=== PATIENT | male | born 1950 | race Caucasian/White ===

== ENCOUNTER → 2017-02-06 | Outpatient (CLI) | payer MEDICARE, OTHER | END | disposition home or self-care (01) | LOC: GMAB 10:15 | PROVIDERS: ATTEND Family Medicine | DX: Z12.5 Encounter for screening for malignant neoplasm of prostate (principal); R53.82 Chronic fatigue, unspecified; E29.9 Testicular dysfunction, unspecified | CPT/HCPCS: 84403; 84443; G0103 ==

== ENCOUNTER 2017-05-19 08:23 | Emergency (ER) | payer MEDICARE, OTHER ==
[2017-05-19 08:49] VITALS: BP 126/76; TEMP 97.3; O2SAT 96
--- NOTE | 2017-05-19 08:49 | ED.PDOC ---
History of Present Illness - General Chief Complaint: General Stated Complaint: Fever, headache, cough, congestion RLQ Pain Time Seen by Provider: 05/19/17 08:33 Source: patient Exam Limitations: no limitations - History of Present Illness Initial Comments: the patient is a 66-year-old male presenting to the emergency room secondary to 10 days of symptoms of a respiratory tract infection including what is probably a COPD exacerbation. He was seen by his primary care doctor last week and diagnosed with a viral respiratory tract infection. His respiratory symptoms have progressed. He is not currently smoking since he has been sick. No definite fevers. The cough has been significant and over the last 3 days the patient has developed some right inguinal pain with fullness present. No bowel obstruction. No vomiting. No blood in the stool. Timing/Duration: unsure Severity: moderate Improving Factors: nothing Worsening Factors: movement Associated Symptoms: cough Allergies/Adverse Reactions: Allergies NO KNOWN ALLERGY Allergy (Verified 05/19/17 08:40) Home Medications: Ambulatory Orders Albuterol Inhaler [Ventolin Hfa Inhaler] 2 puff INH Q4H PRN #1 inh 05/19/17 Amoxicillin & Pot Clavulanate [Augmentin Tab] 875 mg PO BID #14 tab 05/19/17 predniSONE [Prednisone] 20 mg PO DAILY #5 tab 05/19/17 Review of Systems - Review of Systems Constitutional: States: malaise EENTM: States: nose congestion, throat pain Respiratory: States: cough, short of breath - very mild, wheezing Cardiology: States: no symptoms reported Gastrointestinal/Abdominal: States: see HPI Genitourinary: States: no symptoms reported Musculoskeletal: States: no symptoms reported Skin: States: no symptoms reported Neurological: States: no symptoms reported Endocrine: States: no symptoms reported All other Systems: No Change from Baseline Past Medical History (General) - Patient Medical History Hx Congestive Heart Failure: No Hx Diabetes: No Hx MRSA: No Physical Exam - Physical Exam General Appearance: Alert, No apparent distress Eye Exam: bilateral normal Ears, Nose, Throat: hearing grossly normal, nasal congestion Neck: non-tender, full range of motion Respiratory: chest non-tender, no respiratory distress, no accessory muscle use , rhonchi, wheezing Cardiovascular/Chest: normal peripheral pulses, regular rate, rhythm, no edema Peripheral Pulses: radial,right: 2+, radial,left: 2+, dorsalis pedis,right: 2+, dorsalis pedis,left: 2+ Gastrointestinal/Abdominal: soft, other - no rebound or peritoneal signs. The patient does have a reducible right inguinal hernia that is palpable on exam. Rectal Exam: deferred Back Exam: normal inspection, no CVA tenderness Extremity: normal range of motion, non-tender, normal inspection, normal capillary refill Neurologic: electrocardiographic technician II-XII nml as tested, alert, normal mood/affect, oriented x 3 Skin Exam: normal color Progress - Progress Progress: 05/19/17 08:49 the patient is a 66-year-old male presenting with a COPD exacerbation that is mild to moderate in nature and what is probably a worsening right inguinal hernia that is reducible without current obstruction. The patient needs to set up an appointment with his general surgeon within the next week for a scheduled repair of a right inguinal hernia. For the COPD exacerbation he needs to abstain from smoking. He will additionally be placed on prednisone 20 mg daily for the next 5 days. He'll also be placed on Augmentin 875 mg twice daily for the next 7 days. He will also be written for an albuterol inhaler to be used 2 puffs every 4 hours for at least the next 3 days. ER warnings were given. He needs to follow up with his primary care doctor early next week. Departure - Departure Clinical Impression: COPD exacerbation Inguinal hernia Qualifiers: Obstruction and gangrene presence: without obstruction or gangrene Laterality: unilateral Recurrence: non-recurrent Qualified Code(s): K40.90 - Unilateral inguinal hernia, without obstruction or gangrene, not specified as recurrent Disposition: Discharge to Home or Self Care Condition: Fair Departure Forms: ED Discharge - Pt. Copy, Patient Portal Self Enrollment Instructions: Groin Hernia -- Adult, DI for Chronic Obstructive Pulmonary Disease Diet: regular diet Activity: increase activity as tolerated Referrals: Marcelino Gale MD [Primary Care Provider] - 1-5 Days Prescriptions: Albuterol Inhaler [Ventolin Hfa Inhaler] 2 puff INH Q4H PRN #1 inh PRN Reason: Shortness Of Breath Amoxicillin & Pot Clavulanate [Augmentin Tab] 875 mg PO BID #14 tab predniSONE [Prednisone] 20 mg PO DAILY #5 tab Home Medications: Ambulatory Orders Albuterol Inhaler [Ventolin Hfa Inhaler] 2 puff INH Q4H PRN #1 inh 09/15/17 Amoxicillin & Pot Clavulanate [Augmentin Tab] 875 mg PO BID #14 tab 05/19/17 predniSONE [Prednisone] 20 mg PO DAILY #5 tab 05/19/17 Additional Instructions: the patient is a 66-year-old male presenting with a COPD exacerbation that is mild to moderate in nature and what is probably a worsening right inguinal hernia that is reducible without current obstruction. The patient needs to set up an appointment with his general surgeon within the next week for a scheduled repair of a right inguinal hernia. For the COPD exacerbation he needs to abstain from smoking. He will additionally be placed on prednisone 20 mg daily for the next 5 days. He'll also be placed on Augmentin 875 mg twice daily for the next 7 days. He will also be written for an albuterol inhaler to be used 2 puffs every 4 hours for at least the next 3 days. ER warnings were given. He needs to follow up with his primary care doctor early next week.
== END 2017-05-19 09:15 | disposition home or self-care (01) ==
LOC: ER 08:23
DX: J44.1 Chronic obstructive pulmonary disease with (acute) exacerbation (principal); K40.90 Unilateral inguinal hernia, without obstruction or gangrene, not specified as recurrent

== ENCOUNTER → 2017-05-22 | Outpatient (CLI) | payer MEDICARE, OTHER ==
--- NOTE | 2017-05-24 10:41 | CT ---
EXAM DESCRIPTION: Chest w/o Contrast CLINICAL HISTORY: 66 years,Male,COUGH COMPARISON: None TECHNIQUE: Multiple axial helical tomographic images were obtained of the chest with out IV contrast, then reconstructed in the sagittal and coronal plane. This exam was performed using radiation doses that are As Low As Reasonably Achievable (ALARA). FINDINGS: Lung ingram are clear. No consolidations or effusions or nodules. No pneumothoraces. There is mild centrilobular emphysematous images changes. Mediastinum demonstrates no adenopathy or masses. Heart size and pulmonary vascularity are unremarkable. Upper abdominal organs included in the exam demonstrate a new dense lesion exophytic superior pole right kidney measuring 38 Hounsfield units an approximately 8 mm in size. Not seen and CT of the abdomen from February 20, 2012. There is large cyst in the superior pole right kidney measuring over 5 cm in today's study. Prior CT of the abdomen was 3.8 cm Soft tissues and bony elements are unremarkable. IMPRESSION: New subcentimeter exophytic dense mass seen superior pole right kidney. This may be visible by ultrasound to see if its cystic versus solid else MRI of the kidneys with and without gadolinium contrast is usually more sensitive and specific. And there is an enlarging simple cyst superior pole right kidney. Lung ingram are unremarkable except for mild emphysematous changes. Electronically signed by: Wong Campbell MD 05/24/2017 10:39 AM CDT
== END ==
LOC: CT 15:03
PROVIDERS: ATTEND Family Medicine
DX: R05 Cough (principal)

== ENCOUNTER → 2017-06-01 | Day surgery (SDC) | payer MEDICARE, OTHER ==
[~2017-06-01] MED LIST: BUPIVACAINE 0.25% W/EPI 50 ML VIAL INJ ONE; LACTATED RINGERS 1,000 ML BAG IV ONE; LACTATED RINGERS 1,000 ML BAG IVS ONE; LACTATED RINGERS 1,000 ML ONE; LIDOCAINE 1% 10 ML VIAL INJ ONE; LIDOCAINE 2 % GEL 5 ML TUBE TOP ONE; PROPOFOL 200 MG/20 ML VIAL IV ONE; SODIUM CHL 0.9% 100ML MINI-BAG 100 ML IVPB ONE; ceFAZolin SODIUM 1 GM VIAL ONE; fentaNYL CITRATE INJ 50 MCG/ML AMP ONE
[2017-06-01 12:12] VITALS: BP 124/80; TEMP 98; O2SAT 97
== END | disposition home or self-care (01) ==
LOC: AMB 08:00
PROVIDERS: ATTEND Surgery
DX: K40.90 Unilateral inguinal hernia, without obstruction or gangrene, not specified as recurrent (principal); E78.5 Hyperlipidemia, unspecified; I25.10 Atherosclerotic heart disease of native coronary artery without angina pectoris; J45.909 Unspecified asthma, uncomplicated; K52.9 Noninfective gastroenteritis and colitis, unspecified; Z88.8 Allergy status to other drugs, medicaments and biological substances; Z87.891 Personal history of nicotine dependence; I25.2 Old myocardial infarction; Z53.9 Procedure and treatment not carried out, unspecified reason; Z79.899 Other long term (current) drug therapy
CPT/HCPCS: 36415; 80053; 81001; J0690; J3490; J7050; J7120

== ENCOUNTER → 2017-06-02 | Outpatient (CLI) | payer MEDICARE, OTHER | END | disposition home or self-care (01) | LOC: GMAB 10:06 | PROVIDERS: ATTEND Family Medicine | DX: R79.9 Abnormal finding of blood chemistry, unspecified (principal) ==

== ENCOUNTER → 2017-06-08 | Day surgery (SDC) | payer MEDICARE, OTHER ==
[~2017-06-08] MED LIST changes: +ACETAMINOPHEN IV 1000MG 100 ML ONE; +DEXAMETHASONE INJ 10 MG/ML VIAL ONE; +HYDROcodone 5MG/APAP 325MG 1 EA TAB ONE; +HYDROmorphone HCL INJ 2 MG/ML VIAL ONE; +KETOROLAC TROMETHAMINE INJ 30 MG/ML VIAL ONE; -LACTATED RINGERS 1,000 ML BAG IV ONE; -LACTATED RINGERS 1,000 ML BAG IVS ONE; -LIDOCAINE 2 % GEL 5 ML TUBE TOP ONE; +MIDAZOLAM INJ 2 MG/2 ML VIAL ONE; +raNITIdine HCL INJ 25 MG/ML VIAL ONE
[2017-06-08 12:33] VITALS: TEMP 97.6; O2SAT 97
--- NOTE | 2017-06-08 13:13 | OP ---
DATE OF PROCEDURE: 06/08/17 PREOPERATIVE DIAGNOSIS: 1. Right inguinal hernia. POSTOPERATIVE DIAGNOSIS: 1. Right inguinal hernia. PROCEDURE: 1. Repair of right inguinal hernia with Surgimesh graft. SURGEON: Mario Cook MD. HOUSEKEEPING ASSOCIATE: None. ANESTHESIA: General laryngeal mask anesthesia and local infiltration of 0.25% Marcaine with epinephrine. INDICATION: The patient is a 66-year-old male who had developed a mass in his right groin. It has enlarged and become more uncomfortable. He was brought to the Surgical Suite today for hernia repair after the risks, benefits and alternatives to the procedure were discussed and accepted. FINDINGS: There was a generalized weakness in the floor of the canal and indirect hernia with no sliding component in the inguinal canal. There was a lipoma of the cord and also noted into the procedure is the external oblique fascia was torn in two places where the Gelpi retractor was. No other pathology was identified. PROCEDURE: After adequate general anesthesia was obtained, the patient was prepped and draped in the usual sterile manner. At this point, a surgical time- out was taken. An oblique incision was fashioned in the right groin, extending from his appendix incision down to near the pubic tubercle. It was first marked with a pen, then infiltration of anesthesia. The skin was incised with a knife and dissection was carried down through the skin and subcutaneous tissue to the external oblique fascia using electrocautery and blunt dissection. The self-retaining retractor was placed. The external oblique fascia was then opened in the direction of the fibers through the external ring. The external oblique fascia was dissected free from the floor of the canal and from the cord. The cord was then dissected free from the floor of the canal using blunt dissection. A half inch Madai drain was placed around it for traction. The cord was then explored and the indirect hernia sac identified. Prior to this, the nerve was dissected free from the cord and retracted inferiorly. The indirect hernia sac was dissected free down to the floor of the canal and reduced below the floor of the canal. At this point, a Surgimesh patch was introduced under the floor of the canal and sutured circumferentially with interrupted 2-0 Vicryl sutures. When this was done, the wound was irrigated with saline. Hemostasis was noted to be adequate. At this point, the Surgimesh patch was sutured around the cord in the usual manner with interrupted 2-0 Vicryl sutures. When this was done, again, the wound was irrigated with saline. The cord and nerve were then placed back in position in the canal. The external oblique fascia was then closed with running 3-0 Vicryl suture. The two rents in the external oblique fascia were closed with interrupted [id number] sutures of 3-0 Vicryl. When this was done, the cord and subcutaneous tissue above, below and lateral to the incision were infiltrated with local anesthesia. The Yael's fascia was reapproximated with interrupted 3-0 Chromic suture. Skin edges were approximated with skin stapler. The testicle was checked for position in the scrotum. Sterile pressure dressing was applied. The patient was awakened and taken to the Recovery Room in good and stable condition. Estimated blood loss was approximately 100 mL. All sponge, needle and instrument counts were correct. #[id number]
[2017-06-08 13:49] VITALS: BP 128/70
== END | disposition home or self-care (01) ==
LOC: AMB 08:00
PROVIDERS: ATTEND Surgery
DX: K40.90 Unilateral inguinal hernia, without obstruction or gangrene, not specified as recurrent (principal); I25.10 Atherosclerotic heart disease of native coronary artery without angina pectoris; K21.9 Gastro-esophageal reflux disease without esophagitis; J44.9 Chronic obstructive pulmonary disease, unspecified; N40.0 Benign prostatic hyperplasia without lower urinary tract symptoms; E78.5 Hyperlipidemia, unspecified; M19.90 Unspecified osteoarthritis, unspecified site; K52.89 Other specified noninfective gastroenteritis and colitis; Z87.891 Personal history of nicotine dependence; I25.2 Old myocardial infarction; Z88.8 Allergy status to other drugs, medicaments and biological substances; Z79.899 Other long term (current) drug therapy
CPT/HCPCS: 00830; 49505; C1781; J0690; J1100; J1170; J1885; J2250; J2780; J3010; J3490; J7050; J7120

== ENCOUNTER → 2017-10-11 | Outpatient (CLI) | payer MEDICARE, OTHER | LOC: LAB.O 14:37 | PROVIDERS: ATTEND Urology | DX: R97.20 Elevated prostate specific antigen [PSA] (principal) ==

== ENCOUNTER → 2017-10-16 | Outpatient (CLI) | payer MEDICARE, OTHER ==
--- NOTE | 2017-10-16 15:33 | US ---
EXAM DESCRIPTION: Renal: Ultrasound. 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 TECHNIQUE: Transcutaneous scanning: Two-dimensional and Doppler modes. Technically difficult study due to patient body habitus. FINDINGS: Right kidney measures 10.8 x 6.0 x 5.5 cm; mid-renal cortical thickness 15 mm. . 5.5 cm cyst in the upper pole of the right kidney. 1.5 x 1.3 cm cyst in the mid right kidney. Echogenicity equal to the liver. No hydronephrosis No calcifications. Smooth contour of the kidney with no perinephric fluid. Normal vascularity. Proximal ureter not visualized. Left kidney measures 11.1 x 5.7 x 5.0 cm; mid-renal cortical thickness 14.2 mm. Normal echogenicity. No hydronephrosis. No calcifications. Smooth contour of the kidney with no perinephric fluid. Normal vascularity.. Proximal ureter not visualized. Urinary bladder not visualized. Abdominal aorta diameter not measured(cm): Mid 1.8 cm . IMPRESSION: 1. Increased echogenicity of the cortex of the right kidney but no cortical thinning. 5.5 cm cyst and 1.5 cm cyst. No hydronephrosis. No definite stones. No right renal mass. 2. Normal size left kidney and normal cortical echogenicity and thickness. No hydronephrosis. No definite stones. No left renal mass. Electronically signed by: Reid Charlton MD 10/16/2017 3:32 PM [facility]
== END ==
LOC: US 08:30
PROVIDERS: ATTEND Urology
DX: D41.00 Neoplasm of uncertain behavior of unspecified kidney (principal)

== ENCOUNTER → 2017-11-27 | Outpatient (CLI) | payer MEDICARE, OTHER ==
--- NOTE | 2017-11-27 20:06 | MRI ---
EXAM DESCRIPTION: Brain w/o Contrast: MRI. CLINICAL HISTORY: HEADACHES COMPARISON: None. TECHNIQUE: Multiplanar, high-field MRI unit, multiple diffusion sequences, multiple conventional sequences without contrast. FINDINGS: Multiple small bilateral foci of bright FLAIR and T2-weighted signal in the periventricular white matter and rain-white matter junctions of the cerebral hemispheres. This is predominantly at the level of the lateral ventricular bodies and more superiorly. No hemorrhage cerebral edema or mass effect . Similar signal in the right basal ganglia. No hemorrhage, no cerebral edema, no mass-effect. Normal signal in the brainstem and cerebellar hemispheres. No hemorrhage, no cerebral edema, no mass-effect. Concordance of the diffusion and non-diffusion sequences with no diffusion restriction. Cortical sulci, ventricles, and other CSF spaces, and the subdural spaces are normally configured for patients age.. No effacement or displacement. No midline shift. No extra-axial hemorrhage. Normal flow signal void in the major vessels of the [place], and the venous sinuses. IACs are symmetric bilaterally. Normal signal in the bilateral mastoid air cells. No mass effect in the bilateral cerebellopontine angles. Pituitary gland occupies all of the sella. Base of the cerebellar tonsils is at level of the foramen magnum. Mucoperiosteal thickening involving most of the particularly the ethmoid air cells in the paranasal sinuses. Posterior right septal deviation. The bony calvarium is intact. IMPRESSION: 1. Multiple bilateral small white matter lesions in the periventricular regions at the level of the ventricles and above the ventricles. Few lesions In the subcortical rain matter and right basal ganglia. Brainstem and cerebellar hemispheres are unremarkable. This is most likely related to mild cerebral microvascular disease and aging. Less likely would be migraine headaches, demyelination process, vasculitis, or inflammatory process. 2. Normal noncontrast MRI diffusion scan with no evidence of acute or subacute infarction. 3. Minor abnormalities of the paranasal sinuses and nasal passageways. Electronically signed by: Reid Charlton MD 11/27/2017 8:04 PM CDT
== END ==
LOC: MRI 14:02
PROVIDERS: ATTEND Family Medicine
DX: G44.209 Tension-type headache, unspecified, not intractable (principal)

== ENCOUNTER → 2018-07-23 | Outpatient (CLI) | payer MEDICARE, OTHER ==
--- NOTE | 2018-07-23 13:40 | US ---
US THYROID CLINICAL STATEMENT: E04.1.. No palpable mass. No history of previous thyroid surgery or therapy COMPARISON: None FINDINGS: Size right thyroid lobe: 4.4 x 1.7 x 1.5 cm Size left thyroid lobe: 3.3 x 1.4 x 1.4 cm Size isthmus: 0.3 cm Estimated total number of nodules greater than or equal to 1 cm: 1. No dominant cyst. No parenchymal edema or large calcifications. No overlying skin changes. No abnormal vascularity. Nodule 1: Size: 1.3 x 1.3 x 1.0 cm Location: Right Lower Composition: solid or almost completely solid: 2 points Echogenicity: hypoechoic: 2 points Shape: wider than tall: 0 points Margins: smooth: 0 points. Rim more hypoechoic than central nodule. Echogenic foci: none: 0 points ACR Total Points: 4; ACR TI-RADS risk category: TR4 - moderately suspicious nodule. No dominant solid mass or cyst in the adjacent soft tissues. No parenchymal edema or large calcifications. No overlying skin changes. Normal vascularity. IMPRESSION: 1. Nodule 1: ACR TI-RADS 2017 Category TR4. Recommend: Follow-up ultrasound in 1 year. [facility] Best Practice recommendations based upon ACR TI-RADS 2017 recommendations. Please see below.* 2. Soft tissue around the thyroid gland is unremarkable. *ACR TI-RADS 2017 Recommendations: TR1: No FNA or follow up TR2: No FNA or follow up TR3: FNA if >/= 2.5 cm, follow up if 1.5 - 2.4 cm in 1, 3, and 5 years TR4: FNA if >/= 1.5 cm, follow up if 1.0 - 1.4 cm in 1, 2, 3, and 5 years TR5: FNA if >/= 1.0 cm, follow up if 0.5 - 0.9 cm every year for 5 years ACR TI-RADS recommends that no more than two nodules with the highest ACR TI-RADS total point should be biopsied and no more than four nodules should be followed. Electronically signed by: Reid Charlton MD 07/23/2018 1:39 PM DEPUTY INSURANCE COMMISSIONER
== END ==
LOC: US 08:30
PROVIDERS: ATTEND Family Medicine
DX: E04.1 Nontoxic single thyroid nodule (principal)

== ENCOUNTER → 2018-07-30 | Outpatient (CLI) | payer MEDICARE, OTHER ==
--- NOTE | 2018-07-30 09:06 | RAD ---
EXAM DESCRIPTION: Shoulder,Left 2 or More Views CLINICAL HISTORY: 67 years Male, PAIN IN LEFT SHOULDER COMPARISON: None available. FINDINGS: The visualized bones are well-mineralized.No acute fracture or dislocation. The soft tissues appear grossly unremarkable. Moderate to severe osteoarthritis. 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 Electronically signed by: Marco Stephens MD 07/30/2018 9:05 AM [facility]
== END ==
LOC: RAD 08:13
PROVIDERS: ATTEND Orthopaedic Surgery
DX: M25.512 Pain in left shoulder (principal); M19.012 Primary osteoarthritis, left shoulder

== ENCOUNTER → 2018-08-06 | Outpatient (CLI) | payer MEDICARE, OTHER ==
[~2018-08-06] MED LIST changes: -ACETAMINOPHEN IV 1000MG 100 ML ONE; +ALBUTEROL SULFATE 2.5 MG/3 ML VIAL NEB ONE; -BUPIVACAINE 0.25% W/EPI 50 ML VIAL INJ ONE; -DEXAMETHASONE INJ 10 MG/ML VIAL ONE; -HYDROcodone 5MG/APAP 325MG 1 EA TAB ONE; -HYDROmorphone HCL INJ 2 MG/ML VIAL ONE; -KETOROLAC TROMETHAMINE INJ 30 MG/ML VIAL ONE; -LACTATED RINGERS 1,000 ML ONE; -LIDOCAINE 1% 10 ML VIAL INJ ONE; -MIDAZOLAM INJ 2 MG/2 ML VIAL ONE; -PROPOFOL 200 MG/20 ML VIAL IV ONE; -SODIUM CHL 0.9% 100ML MINI-BAG 100 ML IVPB ONE; -ceFAZolin SODIUM 1 GM VIAL ONE; -fentaNYL CITRATE INJ 50 MCG/ML AMP ONE; -raNITIdine HCL INJ 25 MG/ML VIAL ONE
== END ==
LOC: RESP 09:56
PROVIDERS: ATTEND Family Medicine
DX: J44.9 Chronic obstructive pulmonary disease, unspecified (principal)
CPT/HCPCS: 94060; J7611

== ENCOUNTER → 2018-08-20 | Outpatient (CLI) | payer MEDICARE, OTHER ==
--- NOTE | 2018-08-20 15:38 | CT ---
Procedure: CT LUNG SCREENING Exam Date: 03/20/2018. Ordering Provider: Pablo Parry Clinical Indication: HX OF TOBACCO USE. 20 pack years. Stop smoking one year ago. This patient meets eligibility criteria for low-dose CT lung cancer screening. Comparison: CT scan the chest without contrast 05/14/2017. Thyroid ultrasound 07/23/2018. CT scan of the abdomen 02/20/2012. Technique: Using a multislice scanner, sequential helical axial imaging was obtained in the thorax, 2.5 mm thickness, 2.5 mm separation, from the level of the thoracic inlet through the lung bases without IV contrast. A low dose protocol was utilized: CTDI: 1.76 mGy. 120. kVp. 45 mA. DLP: 67.64 mGy-centimeters. 2D sagittal and coronal reconstructed images, 6.0 mm thickness, were obtained. This exam was performed according to our departmental dose optimization program which includes use of automated exposure control, adjustment of the mA and/or kV according to patient size and/or use of iterative reconstruction technique. Nodule measurements under 10 mm are given as mean value of 3 axes diameters. FINDINGS: Lungs and large airways: Multiple tree-in-bud densities with small subpleural groundglass densities are visualized in the right lower lobe more than the left. There is also trace amount of peribronchial wall thickening bilaterally. Minimal pleural parenchymal scarring in the inferior middle lobe and inferior lingula. 4 mm solid nodule in the lateral subpleural right middle lobe on axial image 88 is stable. 4 mm solid subpleural nodule in the superior segment of the left lower lobe laterally on image 73 is stable. Pleura: Scattered bilateral foci of thickening. No effusion or pneumothorax bilaterally. Mediastinum and kenny: evaluation limited by low dose technique and lack of IV contrast. Small lymph nodes. Heart and great vessels: Coronary artery calcifications. Chest wall, lower neck, axillae: Evaluation also limited by same factors as described above. Subcutaneous adipose nodules in the upper and mid back to the right of midline. 1.0-1.5 cm low-density nodule in the right lobe of the thyroid gland. Was seen on prior thyroid ultrasound. Please see below. Bilateral small axillary lymph nodes. Upper abdomen: Approximately 5 cm partially visualized cystic structure most likely originating from the right kidney but cannot exclude origination from the right adrenal gland. (Prior CT scan in February 2012 shows this to be a renal cyst.) Normal density and size of the left adrenal gland and spleen with splenic calcifications. No free air or fluid in the included peritoneal space. Osseous structures: Evaluation limited by low dose MIP technique. Spondylosis in the included thoracic spine. Bilateral sternoclavicular arthrosis. No lytic or blastic lesions. IMPRESSION: 1. "Tree-in-bud" densities in the right lower lobe have increased in the region involved in number since the prior study. Also smaller similar densities in the left lung. This can be associated with chronic processes such as mycobacterial, viral, or fungal infection, bronchiectasis, or aspiration mass, bronchiolitis or sarcoidosis. Small solid nodules are stable, taking into account difference in technique since prior chest CT scan. No abnormal nodules. No pleural effusion or pneumothorax. No abnormal soft tissue masses. Right thyroid nodule again seen. See recommendations on prior thyroid ultrasound scan. Low-dose chest CT recommendations based upon [facility] Best Practice guidelines. Please see below for Lung RADS category and FOLLOW-UP.* *Lung RADS category CATEGORY 2- Nodules with a very low likelihood (less than 1%) of becoming a clinically active cancer due to size or lack of growth. Nodules: Solid or part solid nodule(s) less than 6mm, new solid nodule less than 4mm. Ground glass nodule(s) less than 20mm or unchanged or slow growing ground glass nodule 20mm or greater. Cat 3 or 4 nodule unchanged for 3 or more months. FOLLOW-UP: Continue annual screening with a Low Dose Chest CT in 12 months for re-evaluation. Electronically signed by: Reid Charlton MD 08/20/2018 3:37 PM GRAPHICS SPECIALIST
== END ==
LOC: CT 11:00
PROVIDERS: ATTEND Family Medicine
DX: Z87.891 Personal history of nicotine dependence (principal); R91.1 Solitary pulmonary nodule

== ENCOUNTER → 2019-03-20 | Outpatient (CLI) | payer MEDICARE, OTHER | LOC: LAB.O 14:48 | PROVIDERS: ATTEND Urology | DX: R97.20 Elevated prostate specific antigen [PSA] (principal) ==

== ENCOUNTER → 2019-06-10 | Outpatient (CLI) | payer MEDICARE, OTHER ==
--- NOTE | 2019-06-11 08:29 | CT ---
EXAM DESCRIPTION: Chest w/o Contrast CLINICAL HISTORY: RESTRICTIVE LUNG DISEASE COMPARISON: August 20, 2018 TECHNIQUE: Chest CT was performed without IV contrast. This exam was performed according to our departmental dose-optimization program, which includes automated exposure control, adjustment of the mA and/or kV according to patient size and/or use of iterative reconstruction technique. FINDINGS: 11 mm low-density nodule in the right thyroid lobe, stable from August 20, 2018. No thoracic aortic aneurysm. No esophageal wall thickening. No pleural or pericardial effusion. Limited sensitivity for detection of adenopathy due to lack of contrast, but no mediastinal or hilar adenopathy is seen. The main pulmonary artery is not dilated. The central airways are clear. Mild subsegmental atelectasis or scarring in the posterior medial right lung base with mild bronchiectasis at the same location, new or worse from August,. No additional airspace consolidation or lung mass. 6.2 cm cyst superior pole right kidney. Partially visualized colonic diverticulosis without diverticulitis. Tiny calcified splenic granulomata. The gallbladder is surgically absent. Mild degenerative changes in the thoracic spine multiple levels. IMPRESSION: Mild subsegmental atelectasis or scarring in the posterior right lung base with mild bronchiectasis at the same location. No airspace consolidation, pleural effusion or additional intrathoracic abnormality. Colonic diverticulosis and other nonacute findings as detailed above. Electronically signed by: Jorge Perez MD 06/11/2019 8:27 AM CDT
== END ==
LOC: CT 15:00
PROVIDERS: ATTEND Internal Medicine
DX: J98.4 Other disorders of lung (principal); R06.09 Other forms of dyspnea; J98.11 Atelectasis; K57.30 Diverticulosis of large intestine without perforation or abscess without bleeding

== ENCOUNTER → 2019-07-22 | Outpatient (CLI) | payer MEDICARE, OTHER ==
--- NOTE | 2019-07-22 09:36 | RAD ---
EXAM DESCRIPTION: Shoulder,Left 2 or More Views CLINICAL HISTORY: 68 years Male, PAIN IN LEFT SHOULDER COMPARISON: 07/30/2018 FINDINGS: The visualized bones are well-mineralized.No acute fracture or dislocation. The soft tissues appear grossly unremarkable. Severe osteoarthritis of the glenohumeral joint. Oral fracture of the midshaft of the left clavicle. IMPRESSION: Severe left glenohumeral joint osteoarthritis. Electronically signed by: Yocasta Del Rio MD 07/22/2019 9:34 AM [facility]
== END | disposition home or self-care (01) ==
LOC: RAD 08:40
PROVIDERS: ATTEND Orthopaedic Surgery
DX: M25.512 Pain in left shoulder (principal)

== ENCOUNTER → 2019-07-29 | Outpatient (CLI) | payer MEDICARE, OTHER ==
--- NOTE | 2019-07-30 09:34 | MRI ---
EXAM DESCRIPTION: Shoulder,Left CLINICAL HISTORY: 68 years, Male, PRIMARY OSTEOARTHRITIS OF THE SHOULDER REGION LEFT COMPARISON: Shoulder radiograph 07/22/2019. TECHNIQUE: MRI of the left shoulder was performed with multiplanar multi sequence imaging without intravenous contrast. FINDINGS: Rotator tendons: Mild supraspinatus, infraspinatus, and subscapularis tendinosis. There is mild partial-thickness predominantly bursal surface tearing at the supraspinatus myotendinous junction posterior half (up to 30% thickness). Minimal partial-thickness articular surface tear of the infraspinatus insertional fibers. The subscapularis and teres minor tendons are intact. No full-thickness rotator cuff tear or tendon retraction. Rotator muscles: No significant rotator cuff muscle fatty infiltration. Mild overall decrease volume of the supraspinatus muscle belly within the supraspinatus fossa. Glenoid labrum: Circumferential degenerative tearing of the labrum more pronounced along the posterior labrum. Acromion: The acromion morphology is type two. Mild to moderate acromioclavicular joint osteoarthrosis with mild capsular hypertrophy. Bone and joints: Severe/end-stage glenohumeral joint osteoarthrosis with large inferior projecting marginal osteophyte formation along the inferior joint. There is flattening of the humeral head and mild glenoid retroversion, full-thickness cartilage loss and eburnation.. Glenoid subcortical cystic changes. Moderate shoulder joint effusion. No acute fracture. Biceps tendon: The degree of fluid distention of the biceps tendon sheath appears to be greater than the amount of left shoulder joint effusion suggested of moderate tenosynovitis. Normal course and morphology of the biceps tendon long head within the bicipital groove. Mild proximal biceps long head tendinosis. The biceps labral anchor appears intact. Soft tissues: No solid or cystic mass is seen. Minimal subacromial/subdeltoid bursitis. IMPRESSION: 1. Severe/end-stage left glenohumeral joint osteoarthrosis with flattening of the humeral head, glenoid retroversion with full-thickness cartilage loss and eburnation. Moderate shoulder joint effusion. 2. Background mild rotator cuff tendinosis. Mild partial-thickness tears of the supraspinatus and infraspinatus tendons. No full-thickness rotator cuff tear or tendon retraction. No significant rotator cuff muscle atrophy. 3. Degenerative tearing of the glenoid labrum. 4. Biceps tenosynovitis. Electronically signed by: Jules Meehan DO 07/30/2019 9:32 AM [facility]
== END ==
LOC: MRI 07-23 13:00
PROVIDERS: ATTEND Orthopaedic Surgery
DX: M19.012 Primary osteoarthritis, left shoulder (principal); S46.012A Strain of muscle(s) and tendon(s) of the rotator cuff of left shoulder, initial encounter; M75.22 Bicipital tendinitis, left shoulder; M77.9 Enthesopathy, unspecified

== ENCOUNTER → 2019-09-06 | Outpatient (CLI) | payer MEDICARE, OTHER ==
--- NOTE | 2019-09-06 10:53 | CT ---
EXAM DESCRIPTION: Upper Extremity CLINICAL HISTORY: 69 years Male, LOCALIZED PRIMARY OSTEOARTHRITIS OF THE SHOULDER LEFT COMPARISON: None. TECHNIQUE: This exam was performed according to our departmental dose-optimization program, which includes automated exposure control, adjustment of the mA and/or kV according to patient size and/or use of iterative reconstruction technique. Noncontrast CT of the left shoulder with MPR reformatted images. FINDINGS: The chest wall and left upper and mid lung field is unremarkable. No soft tissue mass about the shoulder is noted other than marked of fluid distention of the biceps tendon sheath with very little joint fluid otherwise noted. Bone on bone advanced end-stage osteoarthritic changes of the glenohumeral articulation with sclerosis loss of articular cartilage and subchondral cyst formation with an approximate 1.5 cm ossific density inferior to the humeral head consistent with an intra-articular loose body in the axillary recess posteriorly. Marked marginal osteophyte formation at the inferior humeral head and superior migration of the humeral head with marked narrowing of the subacromial space to approximately three or 4 mm. Advanced rotator cuff atrophy and degeneration suspected. Anterior downward tilting and modest type II anterior hooking of the acromion is noted on oblique sagittal imaging. Moderate AC joint arthropathy and modest lateral downward tilting of the acromion on oblique coronal imaging also noted. No fracture or destructive process of the shoulder girdle is noted and the scapula including the acromion process and coracoid are essentially unremarkable. IMPRESSION: 1. Advanced glenohumeral degenerative arthropathy with hypertrophic marginal osteophytes [id number] appearance and prominent ossific density in the axillary recess, likely an intra-articular loose body. Superior migration of the humeral head suggest marked rotator cuff atrophy and/or degeneration. 2. Moderate AC joint arthropathy. No fracture or dislocation involving the shoulder is noted with modest posterior subluxation and superior migration of the humeral head relative to the glenoid centrally. 3. Fluid distended biceps tendon sheath with very little joint fluid otherwise noted. 4. Chest wall and upper and mid lung field appear unremarkable. Electronically signed by: Lester Nielsen MD 09/06/2019 10:51 AM [facility]
== END ==
LOC: CT 08:00
PROVIDERS: ATTEND Orthopaedic Surgery
DX: M19.012 Primary osteoarthritis, left shoulder (principal); M25.812 Other specified joint disorders, left shoulder

== ENCOUNTER → 2020-06-22 | Outpatient (CLI) | payer MEDICARE, OTHER | LOC: LAB.O 09:51 | PROVIDERS: ATTEND Urology | DX: Z01.812 Encounter for preprocedural laboratory examination (principal); N40.1 Benign prostatic hyperplasia with lower urinary tract symptoms ==

== ENCOUNTER → 2020-06-29 | Outpatient (CLI) | payer MEDICARE, OTHER ==
--- NOTE | 2020-06-30 13:24 | CT ---
Procedure: CT LUNG SCREENING Exam Date: June 29, 2020. Ordering Provider: Pablo Parry Clinical Indication: HX OF TOBACCO USE smoking cessation x3 years. 15 pack year smoking history. This patient meets eligibility criteria for low-dose CT lung cancer screening. Comparison: CT scan chest regular dose, without contrast June 2019. Technique: Using a multislice scanner, sequential helical axial imaging was obtained in the thorax, 2.5 mm thickness, 2.5 mm separation, from the level of the thoracic inlet through the lung bases without IV contrast. A low dose protocol was utilized for BMI less than 30: BMI: 27. CTDI: 1.76 mGy. 120. kVp. 45 mA. DLP 67 mGy-cm. 2D sagittal and coronal reconstructed images, 6.0 mm thickness, were obtained. This exam was performed according to our departmental dose optimization program which includes use of automated exposure control, adjustment of the mA and/or kV according to patient size and/or use of iterative reconstruction technique. Nodule measurements under 10 mm are given as mean value of 3 axes diameters. FINDINGS: Lungs and large airways: Bilateral uniform small parenchymal blebs in a centrilobular distribution more prevalent in the upper lung ingram compared to the lower lung ingram. Since the prior study, atelectasis and scarring along with volume loss and wall thickening of the distal branching airways has increased in the right lower lobe predominantly involving the basilar segments and more medial than lateral. Prior process mostly involving the medial basal segment. Bronchial branches to right lower lobe basilar segments are narrowed or obstructed. Air bronchograms in the medial posterior basal segments. Mild bilateral peribronchial wall thickening is seen in other lobes with increase in pleural parenchymal thickening in the medial left lower lobe. 4 mm subpleural nodule or focal pleural thickening lateral aspect superior segment left lower lobe on axial series 2, image 74 stable since the prior study. Minimal densities in the inferior lingula and inferior middle lobe. 4 mm stable subpleural nodule lateral right middle lobe on image 2/100. Multiple subpleural groundglass nodules less than 5 mm diameter in the lateral aspect of the superior segment right lower lobe. Pleura and space: Focal thickening less diffuse with no acute process. Mediastinum and kenny: evaluation limited by low dose technique and lack of IV contrast. Small nodes with no dominant soft tissue mass are stable. Heart and great vessels: Minimal coronary artery calcification. Minimal aortic atherosclerotic calcification stable. Chest wall, lower neck, axillae: Evaluation also limited by same factors as described above. Small axillary nodes are stable. Upper abdomen: Evaluation limited by low-dose technique. No free air or free fluid in the included peritoneal space. Large cyst upper pole right kidney. Surgical clips gallbladder fossa with no fluid. Calcification in the spleen and normal size and density of the adrenal glands. Osseous structures: Evaluation limited by low dose MIP technique. Minimal thoracic spondylosis. Arthrosis left glenohumeral joint IMPRESSION: 1. Progressive bronchial wall thickening, atelectasis, scarring, and volume loss in the right lower lobe since the prior study. Bronchial branches to the basilar segments appear narrowed or obstructed. Cannot exclude pneumonia or mass. Kyphosis could be related to infection, inflammation, or tumor. Fibrosis would more likely be bilateral or multi lobar. Recommend correlation with clinical findings.. [facility] Best Practice Recommendations: please see below for Lung RADS category and FOLLOW-UP.* *Lung RADS category Category 4B - Very Suspicious - findings for which additional diagnostic testing and/or tissue sampling is recommended (greater than 15% malignancy probability). Nodules: Solid nodule(s) 15mm (1767.1 mm3) or larger at baseline, OR new or growing, and 8mm (268.1 mm3) or larger solid nodule. Part solid nodule(s) with a solid component 8 mm (268.1 mm3) or greater, OR with a new or growing 4mm (33.5 mm3) or larger solid component. Follow-up: Please return chest CT with IV contrast, PET/CT and/or tissue sampling depending on the "probability of malignancy and comorbidities." PET/CT may be used when there is an 8mm or greater solid component. Electronically signed by: Reid Charlton MD 06/30/2020 1:23 PM CDT
== END ==
LOC: CT 10:00
PROVIDERS: ATTEND Family Medicine
DX: Z12.2 Encounter for screening for malignant neoplasm of respiratory organs (principal); J98.11 Atelectasis; J98.4 Other disorders of lung; R91.8 Other nonspecific abnormal finding of lung field; Z87.891 Personal history of nicotine dependence

== ENCOUNTER → 2020-08-10 | Outpatient (CLI) | payer MEDICARE, OTHER ==
--- NOTE | 2020-08-10 15:50 | CT ---
EXAM:Chest w/o Contrast CLINICAL HISTORY: LUNG NODULE COMPARISON STUDY: CT chest from June 10, 2019, CTA chest August 20, 2018 TECHNICAL: Non-contrast CT images were performed through the chest. Sagittal and coronal reconstructions were performed. FINDINGS: Vascular and organ evaluation is limited without IV contrast. Soft tissue or mediastinal windows demonstrate no mass or lymphadenopathy. The heart is not enlarged. The aorta is non-dilated. The limited images of the upper abdomen are negative. And inferior right thyroid low density is unchanged and requires no follow-up. The right upper pole renal cyst is unchanged. Colonic diverticulosis is noted. Pulmonary parenchymal windows and increase in the amount of medial right lower lobe consolidation. Air bronchograms are present through this region. Mild peribronchial thickening is seen in the right lower lobe. There are patchy areas of increased pulmonary parenchymal density within the right middle lobe, lingula, right upper lobe and left lower lobe. These are more suggestive of an infiltrative process. No interstitial edema or effusion. No pneumothorax. There are mild emphysematous appearing changes of the pulmonary parenchyma. The trachea and major bronchial structures are unremarkable. A 4.5 mm right lower lobe pulmonary nodule is stable. Stable pleural-based right upper lobe nodular density measures 3.5 mm. There are no acute osseous abnormalities. IMPRESSION: 1. Stable left lower lobe pulmonary nodule currently measures 4.5 mm given the stability of the pulmonary nodule, no further imaging follow-up is recommended. 2. Increased infiltrate with air bronchograms in the medial right lower lobe and scattered bilateral peripheral infiltrative densities. Pneumonia should be considered and a viral etiology would be impossible to exclude. This exam was performed according to our departmental dose-optimization program, which includes automated exposure control, adjustment of the mA and/or kV according to patient size and/or use of iterative reconstruction technique. Electronically signed by: Bebo Plasencia MD 08/10/2020 3:49 PM DEPUTY DIRECTOR
== END ==
LOC: CT 09:57
PROVIDERS: ATTEND Family Medicine
DX: R91.1 Solitary pulmonary nodule (principal); R91.8 Other nonspecific abnormal finding of lung field; Z12.5 Encounter for screening for malignant neoplasm of prostate; Z79.899 Other long term (current) drug therapy; E78.2 Mixed hyperlipidemia; Z87.891 Personal history of nicotine dependence
CPT/HCPCS: 71250; 84443; G0103